=== PATIENT | female | born 1935 | race Caucasian/White ===

== ENCOUNTER → 2018-02-21 10:01 | Outpatient (CLI) | payer MEDICARE, SELFPAY | PROVIDERS: Family Provider Internal Medicine Infectious Disease; PCP Internal Medicine Infectious Disease; Visit Provider Obstetrics & Gynecology | DX: Z12.31 Encounter for screening mammogram for malignant neoplasm of breast (principal) | CPT/HCPCS: 77063; 77067 ==

== ENCOUNTER → 2019-02-28 11:43 | Outpatient (CLI) | payer MEDICARE, SELFPAY ==
--- NOTE | 2019-02-28 11:46 | BI_ITS ---
MAMMOGRAPHY - BILATERAL SCREENING 3-D TOMOSYNTHESIS REASON FOR EXAM: Female, 83 years old. Bilateral Screening 3-D tomosynthesis PERTINENT HISTORY: Aunt with breast cancer.. TECHNIQUE: 2-D mammograms and 3-D Tomosynthesis of the breast (s) were performed. CAD was performed. COMPARISON: 02/21/2018, 02/02/2017, 02/02/2016. FINDINGS: The breast composition is composed of scattered fibroglandular density. Scattered benign calcifications are seen. No dense spiculated masses or suspicious microcalcifications are identified. No architectural distortion is identified. There is no skin thickening or retraction. There has been no significant change since the prior study. BI/SCREEN MAMM (CAD) W/GRIFFIN BILAT IMPRESSION: No mammographic signs of malignancy. Routine yearly mammograms recommended. ASSESSMENT CATEGORY: BIRADS Category 2: Benign. A letter regarding these results will be sent to the patient by the facility within 30 days. FOLLOW UP RECOMMENDATION: Yearly follow up mammogram recommended. (A) Approximately 10% of breast cancers are not detected by mammography. A normal mammogram should not delay biopsy of a clinically suspicious abnormality. Electronically Signed: Sonu Bonilla MD at 15:53 EDT Tel [phone], Service support ,
== END ==
PROVIDERS: Family Provider Internal Medicine Infectious Disease; PCP Internal Medicine Infectious Disease; Referring Provider Internal Medicine Infectious Disease; Visit Provider Internal Medicine Infectious Disease
DX: Z12.31 Encounter for screening mammogram for malignant neoplasm of breast (principal); Z80.3 Family history of malignant neoplasm of breast
CPT/HCPCS: 77063; 77067

== ENCOUNTER → 2020-03-13 13:46 | Outpatient (CLI) | payer MEDICARE, SELFPAY ==
--- NOTE | 2020-03-13 13:52 | BI_ITS ---
MAMMOGRAPHY - BILATERAL SCREENING REASON FOR EXAM: Female, 84 years old. Routine annual screening examination. PERTINENT HISTORY: Aunt with breast cancer. TECHNIQUE: Digital bilateral breast griffin (3D mammographic acquisition) in the CC and MLO projections. 2-D mediolateral oblique (MLO) and craniocaudad (CC) views of both breasts were obtained. CAD: Full Field Digital Mammography with Computer Added Detection was performed. COMPARISON: Comparison is made with prior study dated 02/28/2019 and 02/21/2018. FINDINGS: Breast Composition: There are scattered areas of fibroglandular density. There are no dominant masses or suspicious calcifications. No other significant abnormalities are identified. There has been no significant change since the prior study. BI/SCREEN MAMM (CAD) W/GRIFFIN BILAT IMPRESSION: Stable bilateral screening mammogram. Yearly follow-up mammogram recommended. (A) ASSESSMENT CATEGORY: BIRADS Category 1: Negative. A letter regarding these results will be sent to the patient by the facility within 30 days. Approximately 10% of breast cancers are not detected by mammography. A normal mammogram should not delay biopsy of a clinically suspicious abnormality. [id number] Electronically Signed: Mata Rain, at 14:46 EDT , Service support ,
== END ==
PROVIDERS: PCP Internal Medicine Infectious Disease
DX: Z12.31 Encounter for screening mammogram for malignant neoplasm of breast (principal)
CPT/HCPCS: 77063; 77067

== ENCOUNTER 2023-11-16 12:58 | Emergency (ER) | payer MEDICARE, SELFPAY ==
[2023-11-16 12:58] VITALS: BP 157/65; PULSE 89; RESP 14; TEMP 36.1; O2SAT 95
--- NOTE | 2023-11-16 13:36 | VDLE_ITS ---
Reason For Study: swelling RIGHT LEFT CFV is compressible, spontaneous, phasic, GSV is normal. competent and demonstrates normal CFV is compressible, spontaneous, phasic, augmentation. competent, and demonstrates normal Procedure augmentation. This is a venous duplex using B-mode, color FV is compressible, spontaneous, phasic, flow and spectral Doppler. competent and demonstrates normal Exam performed portable in ED. augmentation. The exam was diagnostic. POP V is compressible, spontaneous, phasic, A preliminary report was called and/or faxed competent and demonstrates normal to Dr. Saunders. augmentation. T/P Trunk is compressible. PTV is compressible. LT PerV is compressible. VL/Venous Duplex US, Unilateral Interpretation Summary Deep veins of the left lower extremity are patent and compressible segmentally. There is no evidence of left lower extremity deep vein thrombosis. The left great saphenous vein yisel ears patent and compressible segmentally. Ordering Physician: Home Saunders Performed By: Kedar Piña RVT
--- NOTE | 2023-11-16 13:41 | ED.VIS.LOWEX ---
HPI History of Present Illness Chief Complaint: Lower Extremity Injury Narrative Narrative: 88-year-old female presenting with left foot swelling. She states she was just released from [place]. She was there because she had a UTI had a fibular fracture. She has a walking boot on the right foot. She is ambulatory. Denies history of DVT/PE. No recent surgery. She states he has been active in PT. PFSH PFSH Home Medications calcium carbonate 500 mg-vitamin D3 10 mcg (400 unit) tablet (Calcium 500 + D) 1 ea PO DAILY 03/19/14 [History Last Taken Unknown] cholecalciferol (vitamin D3) 25 mcg (1,000 unit) capsule (Vitamin D3) 1,000 unit PO DAILY 03/19/14 [History Last Taken Unknown] estradiol 0.01% (0.1 mg/gram) vaginal cream (Estrace) 1 g vaginal Q7D 03/19/14 [History Last Taken Unknown] famotidine 20 mg tablet 20 mg PO DAILY 03/19/14 [History Last Taken 04/01/14 10:30] hydroxychloroquine 200 mg tablet 200 mg PO BIDCM 03/19/14 [History Last Taken Unknown] lisinopril 10 mg tablet 10 mg PO BID 03/19/14 [History Last Taken 04/01/14 10:30] loratadine 10 mg tablet (Allergy Relief (loratadine)) 10 mg PO DAILY 03/19/14 [History Last Taken Unknown] potassium gluconate 500 mg (83 mg) tablet 500 mg PO DAILY 03/19/14 [History Last Taken Unknown] acetaminophen 500 mg capsule (Pain Reliever (acetaminophen)) 500 mg PO DAILY ##1 04/03/14 [Rx Last Taken Unknown] aspirin 81 mg chewable tablet 81 mg PO DAILY@0800 ##1 04/03/14 [Rx Last Taken Unknown] hydrocodone-acetaminophen 5-325mg 5mg-325mg 1 - 2 tab PO Q6H PRN PRN MILD-MODERATE (PAIN SCALE 1-5) ##80 04/03/14 [Rx Last Taken Unknown] omega-3 fatty acids-fish oil 300 mg-1,000 mg capsule 1 ea PO DAILY ##1 04/03/14 [Rx Last Taken Unknown] rivaroxaban 10 mg tablet (Xarelto) 10 mg PO DAILY@0600 ##10 04/03/14 [Rx Last Taken Unknown] tramadol 50 mg tablet 50 mg PO BID ##1 04/03/14 [Rx Last Taken Unknown] Allergy/AdvReac Type Severity Reaction Status Date / Time acetaminophen [From Dristan] AdvReac Nausea/Vom/ Verified 11/16/23 12:59 Diarrhea chlorpheniramine AdvReac Nausea/Vom/ Verified 11/16/23 12:59 [From Dristan] Diarrhea diphenhydramine HCl AdvReac Other Verified 11/16/23 12:59 [From Benadryl] levofloxacin [From Levaquin] AdvReac Nausea/Vom/ Verified 11/16/23 12:59 Diarrhea meloxicam [From Mobic] AdvReac Nausea/Vom/ Verified 11/16/23 12:59 Diarrhea oxymetazoline HCl AdvReac Nausea/Vom/ Verified 11/16/23 12:59 [From Edgardo] Diarrhea pheniramine maleate AdvReac Nausea/Vom/ Verified 11/16/23 12:59 [From Drmikel] Diarrhea phenylephrine HCl AdvReac Nausea/Vom/ Verified 11/16/23 12:59 [From Edgardo] Diarrhea pseudoephedrine HCl AdvReac Nausea/Vom/ Verified 11/16/23 12:59 [From Edgardo] Diarrhea Social History Smoking Status: Never smoker ROS ROS ED Constitutional Constitutional ED: Denies chills, fever(s) or sweats Eyes Eyes: Denies blurry vision or change in vision ENT ENT ED: Denies ear pain or sore throat Cardiovascular Cardiovascular: Denies chest pain, palpitations or racing heartbeat Respiratory/Chest Respiratory/Chest: Denies cough, dyspnea or sputum Gastrointestinal Gastrointestinal: Denies abdominal pain, constipation, diarrhea, nausea or vomiting Genitourinary Genitourinary ED: Denies dysuria, hematuria or urinary frequency Musculoskeletal Musculoskeletal: Reports other Details: Left foot and ankle swelling ; Denies arthralgias, myalgias or neck pain Integumentary Denies abscess, Abrasions or rash Neurologic Neurologic: Denies headache(s), paresthesias or weakness Psychiatric Psychiatric: Denies anxiety, depression, suicidal ideation or suicidal thoughts Endocrine Endocrinology: Denies polydipsia or polyuria EXAM Physical Exam Const Vital Signs: 11/16/23 12:58 Temperature 97 F L Temperature Source Temporal Pulse Rate 89 Respiratory Rate 14 Blood Pressure 157/65 H Blood Pressure Mean 95 Pulse Ox 95 Oxygen Delivery Method Room Air Positive well nourished HEENT Reports moist mucous membranes normocephalic Resp normal respiratory effort Cardio regular rate and regular rhythm Extremity Extremity Narrative: Mild swelling noted to the medial malleolus on the right foot. No bruising, tenderness. Neurovascular intact brisk up refill. Neuro oriented x3 and CN's II-XII intact bilaterally Sensorium / Orientation: alert Motor Exam: strength 5/5 throughout Psych mental status grossly normal MDM MDM MDM Narrative Medical decision making narrative: Patient presenting with leg swelling on the left and concern for DVT. Duplex was negative. Patient states that her primary care physician was going to put her on a diuretic as long as she did not have a DVT. I recommended compression, elevation. She will follow-up with him. Impression: 1. Left foot and ankle edema Discharge Plan Triage Chief Complaint: Lower Extremity Injury ED Provider: Home Saunders Dx/Rx/DC Orders Instructions: ED Peripheral Edema, Unilateral Prescriptions: No Action famotidine 20 MG tablet 20 mg PO DAILY lisinopril 10 MG tablet 10 mg PO BID hydroxychloroquine 200 MG tablet 200 mg PO BIDCM estradiol [Estrace] 42.5 GM cream 1 g vaginal Q7D loratadine [Allergy Relief (loratadine)] 10 MG tablet 10 mg PO DAILY cholecalciferol (vitamin D3) [Vitamin D3] 1,000 UNIT capsule 1,000 unit PO DAILY calcium carbonate-vitamin D3 [Calcium 500 + D] 1 EACH tablet 1 ea PO DAILY potassium gluconate 500 MG tablet 500 mg PO DAILY hydrocodone-acetaminophen 1 TABLET tablet 1 - 2 tab PO Q6H PRN PRN (Reason: MILD-MODERATE (PAIN SCALE 1-5)) Qty: 80 0RF rivaroxaban [Xarelto] 10 MG tablet 10 mg PO DAILY@0600 Qty: 10 0RF tramadol 50 MG tablet 50 mg PO BID Qty: 1 0RF Rx Instructions: DO NOT TAKE WITH XARELTO aspirin 81 MG tablet,chewable 81 mg PO DAILY@0800 Qty: 1 0RF Rx Instructions: DO NOT TAKE WITH XARELTO acetaminophen [Pain Reliever (acetaminophen)] 500 MG capsule 500 mg PO DAILY Qty: 1 0RF Rx Instructions: DO NOT TAKE WITH NORCO omega-3 fatty acids-fish oil 1 EACH capsule 1 ea PO DAILY Qty: 1 0RF Rx Instructions: DO NOT TAKE WITH XARELTO Primary Care Provider: Stephen Nj Referrals: Stephen Nj MD [Primary Care Provider] - Disposition Disposition: Home, Self Care
[2023-11-16 15:30] VITALS: BP 149/87; PULSE 89; RESP 18; TEMP 36.6; O2SAT 99
== END 2023-11-16 15:31 | disposition home or self-care (01) ==
PROVIDERS: Emergency Provider Student in an Organized Health Care Education/Training Program; PCP Internal Medicine Infectious Disease; Visit Provider Student in an Organized Health Care Education/Training Program
DX: R60.0 Localized edema (principal); Z87.440 Personal history of urinary (tract) infections; S82.409D Unspecified fracture of shaft of unspecified fibula, subsequent encounter for closed fracture with routine healing
CPT/HCPCS: 93971; 99282